=== PATIENT | female | born 1990 | race Caucasian/White ===

== ENCOUNTER 2022-06-10 22:49 | Emergency (ER) | payer OTHER, SELFPAY ==
[2022-06-10 22:54] VITALS: BP 138/84; PULSE 94; RESP 20; TEMP 36.1; O2SAT 97; BMI 39.0
--- NOTE | 2022-06-10 23:29 | ED_ITS ---
HPI - Skin/Abscess/Foreign Bdy General Chief complaint: Skin/Abscess/Foreign Body Stated complaint: welts/hives all over body Time Seen by Provider: 06/10/22 23:20 Source: patient Mode of arrival: ambulatory Limitations: no limitations History of Present Illness HPI narrative: Patient comes to the emergency room complaining of hives. Patient states that she has had intermittent hives since March of 2022 that started a few days after her appendectomy. Patient has been taking Zyrtec and Benadryl at home, but the hives keep recurrent. According to the patient, she had never had any known allergic reactions until after the appendectomy. Patient denies any wheezing or shortness of breath. Related Data Previous Rx's Medication Instructions Recorded famotidine 40 mg tablet (Pepcid) 40 mg PO DAILY #5 tabs 06/11/22 hydrocortisone 2.5 % topical cream 1 appl topical TID PRN allergic 06/11/22 reaction #30 grams prednisone 50 mg tablet 50 mg PO DAILY #5 tabs 06/11/22 Allergies Allergy/AdvReac Type Severity Reaction Status Date / Time azithromycin Allergy Unknown Verified 06/10/22 23:01 [email or web address] Allergy Unknown itchy Uncoded 05/29/17 00:00 throat Review of Systems Review of Systems: Constitutional : No Weight loss, No Fever, No Chills, No Night Sweats, No Fatigue, No Malaise ENT/Mouth : No Hearing loss, No Ear Pain, No Nasal Congestion, No Sinus Pain, No Hoarseness, No sore throat, No Rhinorrhea, No Swallowing Difficulty Eyes: No Eye Pain, No Swelling, No Redness, No Foreign Body, No Discharge, No Vision Changes Cardiovascular : No Chest Pain, No SOB, No Dyspnea on Exertion, No Orthopnea, No Edema, No Palpitations Respiratory : No Cough, No Sputum, No Wheezing, No Smoke Exposure, No Dyspnea Gastrointestinal : No Nausea, No Vomiting, No Diarrhea, No Constipation, No abdominal Pain, No Hematochezia, No Melena Genitourinary : no irregular bleeding, No Dysuria, No Urinary Frequency, No Hematuria, No Urinary Incontinence, No Urgency, No Flank Pain, No Urinary Flow Changes, No Hesitancy Musculoskeletal : No joint pain, No Myalgias, No Joint Swelling Skin : Complaining of hives Neuro : No Weakness, No Numbness, No Paresthesias, No Loss of Consciousness, No Dizziness, No Headache Psych : No Anxiety/Panic, No Depression, No SI/HI/AH/VH, No Social Issues, Heme/Lymph: No Bruising, No Bleeding,No Lymphadenopathy Endocrine : No Polyuria, No Polydipsia, No Temperature Intolerance [facility] Social History Social History Alcohol intake: current Alcohol intake frequency: holidays/special occasions only Alcohol type: hard liquor Smoked in Last 30 Days: No Use of substances other than those prescribed or required for medical reasons: No Advance Directives: No Advance Directives Information Provided: No Patient : No Physical Exam Vital Signs: Vital Signs: Last Vital Signs Temp 97 F 06/10/22 22:54 Pulse 94 06/10/22 22:54 Resp 20 06/10/22 22:54 BP 138/84 06/10/22 22:54 Pulse Ox 97 06/10/22 22:54 O2 Del Method 06/10/22 22:54 BMI result Body Mass Index 39.0 Const: Other: Appearance: Alert. Oriented X3. No acute distress. Eyes: Pupils equal, round and reactive to light. ENT: Pharynx normal. Neck: Normal inspection. Neck supple. No lymph nodes noted. No crepitus CVS: Normal heart rate and rhythm. Pulses normal. Normal S1 and S2 Respiratory: No respiratory distress. Breath sounds normal. No Wheezing. No rales Abdomen: Soft and nontender. No rigidity. No distention. Skin: Skin warm and dry. Uticaria present in upper extremities. Patient in hallway, cannot examine lower extremities Extremities: No lower extremity edema. No Lacerations. No Rash Neuro: Oriented X 3. No motor deficit. No sensory deficit. Moving all extremities. No slurred speech. CN 2 through 12 grossly intact Psych: calm, cooperative, normal affect Course Course Course Narrative: Discussed with the patient that she needs allergy testing. This time will address diuretic area with Solu-Medrol, famotidine, diphenhydramine and fluids. There may be a low possibility that the patient is allergic to the subcutaneous sutures that were used for her appendectomy versus developed hypersensitivity reaction Medications Administered Discontinued Medications Generic Name Dose Route Start Last Admin Trade Name Freq PRN Reason Stop Dose Admin Diphenhydramine HCl 25 mg 06/10/22 23:27 06/10/22 23:54 Diphenhydramine Hcl 50 Mg/Ml Vial IVPUSH 06/10/22 23:28 25 mg ONCE ONE Administration Famotidine 20 mg 06/10/22 23:27 06/10/22 23:55 Famotidine/Pf 20 Mg/2 Ml Vial IVPUSH 06/10/22 23:28 20 mg ONCE ONE Administration Sodium Chloride 1,000 mls @ 999 mls/hr 06/10/22 23:28 06/11/22 00:05 Ns IVCONT 06/11/22 00:28 Not Given .Q1H1M ONE Methylprednisolone Sodium Succinate 125 mg 06/10/22 23:27 06/10/22 23:55 Methylprednisolone Sod Succ 125 Mg/2 Ml Vial IVPUSH 06/10/22 23:28 125 mg ONCE ONE Administration Medical Decision Making Medical Decision Making [facility] Narrative: Patient has hives still present but much improved. Patient will be sent home with a prescription of prednisone and patient also requested topical steroid. Discussed with the patient that she needs to be allergy tested. Differential Diagnosis Differential Diagnoses: The differential diagnosis associated with the presentation includes (Allergic reaction versus hypersensitivity reaction) Discharge Plan Discharge Clinical Impression: Allergic reaction Patient Disposition: Home, Self-Care Instructions: General Allergic Reaction (ED) Additional Instructions: Please follow-up with your primary care physician tomorrow. If you have any worsening or new symptoms, please return to the emergency room or call 911 Prescriptions: New prednisone 50 mg tablet 50 mg PO DAILY Qty: 5 0RF famotidine [Pepcid] 40 mg tablet 40 mg PO DAILY Qty: 5 0RF hydrocortisone 2.5 % cream 1 appl topical TID PRN (Reason: allergic reaction) Qty: 30 0RF
[2022-06-10] MEDS: diphenhydrAMINE HCL 50 MG/ML VIAL 25 MG IVPUSH (23:54)
[2022-06-10] MEDS: methylPREDNISolone Sod Succ 125 MG/2 ML VIAL IVPUSH (23:55)
[2022-06-10] MEDS: Famotidine/PF 20 MG/2 ML VIAL IVPUSH (23:55)
--- NOTE | 2022-06-11 00:05 | PC.NURSE ---
PT A&Ox4, reports hives all over body, on going for a few months now. IV established, meds given as documented. PT declined IV fluids states I've been through this multiple times and I have to work in the AM , provider notified.
== END 2022-06-11 00:39 | disposition home or self-care (01) ==
PROVIDERS: Emergency Provider Emergency Medicine
DX: L50.9 Urticaria, unspecified (principal); T78.40XA Allergy, unspecified, initial encounter; X58.XXXA Exposure to other specified factors, initial encounter
CPT/HCPCS: 96374; 96375; 99284; J1200; J2930